=== PATIENT | male | born 1995 | race Two or more races ===

== ENCOUNTER 2023-01-06 13:46 | Day surgery (SDC) | payer MEDICAID, SELFPAY ==
--- NOTE | 2023-01-06 | MR_ITS ---
The [address] [address] Patient Name: KRISTINA WEEKS MRN: [id number] date: 1995 Sex: M Assigned Patient Location: MRI Current Patient Location: MRI Accession/Order Number: [id number] Exam Date: 01/06/2023 14:48 Report Date: 01/07/2023 10:04 At the request of: NATHANAEL DUVAL Procedure: MR arthrogram shoulder HISTORY: Right shoulder pain since throwing a ball and dislocating the shoulder on 11/16/2022. Evaluate for internal derangement of the shoulder. MRI right shoulder with contrast (direct MR arthrogram) 01/06/2023. COMPARISON: Arthrogram images from the right shoulder arthrogram procedure 01/06/2023. TECHNIQUE: Multiplanar, multisequence MRI images of the right shoulder were obtained following the fluoroscopic guided administration of dilute gadolinium into the right glenohumeral joint for an MR arthrogram. FINDINGS: ACROMIOCLAVICULAR JOINT AND ROTATOR CUFF OUTLET: The acromioclavicular joint appears within normal limits. There is a type I acromion. No significant subacromial/subdeltoid bursitis is seen. ROTATOR CUFF: No significant tendinopathy or tear of the rotator cuff is seen. No atrophy or strain of the rotator cuff musculature is seen. The bulk of the rotator cuff musculature appears within normal limits. BICEPS TENDON AND LABRUM: The long bicipital tendon appears within normal limits. There is linear extension of contrast between the majority of the posterior labrum and the anteroinferior through the inferior labrum. The superior labrum appears intact. GLENOHUMERAL JOINT: There appears to be mild focal thinning of the cartilage of the posteroinferior glenoid. BONES: The bone marrow signal intensity is age appropriate. There is a 7 mm subchondral cyst within the posteroinferior glenoid. There is evidence of a very small Hill-Sachs impaction deformity of the superolateral aspect of the humeral head as best seen on image 13 of the coronal T2 fat-saturated sequence with a small amount of underlying subcortical bone marrow edema in this region. There is also mild subcortical cystic change incidentally noted in the posterior greater tuberosity. MR/MR arthrogram shoulder IMPRESSION: 1. There is a nondisplaced tear involving the majority of the posterior labrum and the anteroinferior through the inferior labrum. There also appear to be mild focal degenerative changes of the posteroinferior aspect of the glenoid with a 7 mm underlying subchondral cyst in this region. 2. There is evidence of a very small Hill-Sachs impaction deformity of the superolateral aspect of the humeral head with a small amount of underlying bone marrow edema. 3. No significant tendinopathy or tear of the rotator cuff is seen. Electronically authenticated by: SEGUNDO RIVERO Date: 01/07/2023 10:04
--- NOTE | 2023-01-06 13:56 | FL_ITS ---
The [address] [address] Patient Name: KRISTINA WEEKS MRN: [id number] date: 1995 Sex: M Assigned Patient Location: MRI Current Patient Location: MRI Accession/Order Number: [id number] Exam Date: 01/06/2023 14:10 Report Date: 01/07/2023 07:19 At the request of: NATHANAEL DUVAL Procedure: FL arthrogram shoulder RT EXAMINATION: FL arthrogram shoulder RT HISTORY: Internal Derangement Of Shoulder M24.811 COMPARISON: No relevant comparison available. TECHNIQUE: An arthrogram was performed under fluoroscopic guidance using non-ionic contrast material in the usual sterile manner after obtaining informed consent. Standard level fluoroscopic mode of operation utilized. FINDINGS: JOINT: Right shoulder NEEDLE: 25 gauge, 3.5 spinal needle. MEDICATION: 6cc buffered 1% lidocaine for subcutaneous anesthesia 5cc Omnipaque-240 iodinated contrast to visualize the joint space 1% lidocaine 5 mL. 0.2 mL of Dotarem injected into the joint space. TECHNIQUE: Anterior approach with prior localization. A single stick was successful in gaining access to the joint space. CLINICAL: Preprocedure pain 8 out of 10. Postprocedure pain 0 out of 10 COMPLICATIONS: None. BONES: Normal. No erosion, osteophyte, fracture, or bony lesion. CARTILAGE: Normal. No visible erosion or interruption. CAPSULE: Extravasation of contrast outside of the expected joint space likely representing a labral tear CHRIS-ARTICULAR: Normal. No visible chris-articular soft tissue abnormality. LOOSE BODIES: None. OTHER: Negative. PLEASE ALSO SEE THE SEPARATE ARTHROGRAM PROCEDURE REPORT. FL/FL arthrogram shoulder RT IMPRESSION: Technically successful right shoulder diagnostic arthrogram for MRI with likely labral tear Electronically authenticated by: STEVO MARQUEZ Date: 01/07/2023 07:19
[2023-01-06] MEDS: LIDOCAINE HCL 15 ML, SODIUM BICARBONATE 2 MEQ INJ (14:30)
== END 2023-01-06 14:45 | disposition home or self-care (01) ==
PROVIDERS: Radiology Diagnostic Radiology; Visit Provider Personal Emergency Response Attendant
DX: M24.811 Other specific joint derangements of right shoulder, not elsewhere classified (principal)
CPT/HCPCS: 23350; 73040; 77002; A9575; Q9967